=== PATIENT | male | born 1960 | race Caucasian/White ===

== ENCOUNTER 2024-04-28 17:02 | Emergency (ER) | payer OTHER ==
[2024-04-28 17:11] VITALS: BP 142/73; PULSE 77; RESP 18; TEMP 97.6; BMI 27.4
[2024-04-28] MEDS ORDERED: MORPHINE SULFATE 2 MG/ML SYRINGE ONE (17:43)
[2024-04-28 17:50] LABS: BASO % 0.8 % (0-2.0); EOS % 2.5 % (0-4.5); HEMATOCRIT 45.9 % (35.4-49); HEMOGLOBIN 15.2 GM/dL (11.7-16.9); LYMPH % 27.7 % (8-40); MCH 27.7 pg (25.7-33.7); MCHC 33.2 g/dl (32.0-35.9); MEAN CELL VOLUME 83.3 fl (80-96); MEAN PLT VOLUME 7.5 fl (7.5-11.1); MONO % 9.5 % (3.8-10.2); NEUT % 59.5 % (42.8-82.8); PLATELET COUNT 276 10^3/uL (134-434); RBC 5.51 M/mm3 (4.00-5.60); RDW 15.9 % (11.9-15.9); WHITE BLOOD COUNT 8.1 K/mm3 (4.0-10.0)
[2024-04-28] MEDS: SODIUM CHLORIDE 0.9% 500 ML INFUS.BAG IV ONE (17:57)
[2024-04-28] MEDS: morphine CARPU-JECT 2 MG/1 ML DISP.SYRIN IVPUSH ONE (17:57)
[2024-04-28 18:12] LABS: POTASSIUM 4.2 mmol/L (3.5-5.1)
[2024-04-28 18:14] LABS: ALBUMIN 3.6 g/dl (3.4-5.0); BLOOD UREA NITROGEN 15.1 mg/dL (7-18); CALCIUM 8.6 mg/dL (8.5-10.1)
[2024-04-28 18:18] LABS: CREATININE 0.9 mg/dL (0.55-1.3)
[2024-04-28 18:19] LABS: TOT PROT 7.4 g/dl (6.4-8.2)
[2024-04-28 18:22] LABS: BILIRUBIN,TOTAL 0.5 mg/dL (0.2-1)
[2024-04-28] MEDS ORDERED: KETOROLAC TROMETHAMINE 15 MG/ML VIAL ONE (21:38)
[2024-04-28] MEDS: KETOROLAC TROMETHAMINE 15 MG/ML VIAL IVPUSH ONE (21:43)
== END 2024-04-28 22:17 | disposition home or self-care (01) ==
LOC: JER 17:02
PROC: 3E0333Z Introduction of Anti-inflammatory into Peripheral Vein, Percutaneous Approach (ICD-10-PCS; principal; 2024-04-28)
PROC: 3E033NZ Introduction of Analgesics, Hypnotics, Sedatives into Peripheral Vein, Percutaneous Approach (ICD-10-PCS; 2024-04-28)
DX: R10.11 Right upper quadrant pain (principal); R10.31 Right lower quadrant pain
CPT/HCPCS: 36415; 74177-TC; 80053; 83690; 85025; 99285-25; Q9967